=== PATIENT | female | born 1985 | race Caucasian/White ===

== ENCOUNTER 2021-02-17 15:03 | Outpatient (CLI) | payer OTHER, SELFPAY ==
[2021-02-17 15:50] LABS: Basophils % 0.8 %; Eosinophils # 0.2 10^3/uL (0.0-0.8); Eosinophils % 3.6 %; Hematocrit 33.7 % (37.0-47.0); Hemoglobin 10.4 g/dL (11.5-15.3); Lymphocytes % 18.9 %; Mean Corpuscular HGB Conc 30.9 g/dL (30.0-36.0); Mean Corpuscular Hemoglobin 27.1 pg (28.0-34.0); Mean Corpuscular Volume 87.8 fl (81-99); Mean Platelet Volume 9.7 fL (7.4-10.4); Monocytes # 0.5 10^3/uL (0.2-0.9); Monocytes % 9.8 %; Neutrophils # 3.35 10^3/uL (1.8-7.7); Neutrophils % 66.7 %; Nucleated Red Blood Cells % 0 %; Platelet Count 269 10^3/cmm (130-400); Red Blood Count 3.84 10^6/uL (4.1-5.3); Red Cell Distribution Width 13.9 % (12.1-15.1)
[2021-02-17 16:37] LABS: Alanine Aminotransferase 12 U/L (0-33); Albumin Level 4.4 g/dL (3.5-5.2); Alkaline Phosphatase 60 IU/L (35-105); Anion Gap 16.7 (5-19); Aspartate Amino Transferase 15 U/L (0-32); Blood Urea Nitrogen 8 mg/dL (6-20); Calcium 9.3 mg/dL (8.5-10.5); Carbon Dioxide 23 mmol/L (22-29); Chloride 103 mmol/L (98-107); Globulin 2.6 g/dL (1.3-4.6); Glomerular Filtration Rate 138.8 mL/min (90-130); Glucose 89 mg/dL (65-115); Osmolality Calculated 286 mOsm/kg (285-295); Potassium 3.7 mmol/L (3.5-5.1); Sodium 139 mmol/L (136-145); Thyroid Stimulating Hormone 1.98 uIU/mL (0.27-4.20); Total Bilirubin 0.2 mg/dL (0.15-1.2); Vitamin B12 456 pg/mL (232-1245)
[2021-02-17 18:04] LABS: Estmated Average Glucose 123; Hemoglobin A1C 5.9 % (4.0-6.0)
== END 2021-02-17 15:04 | disposition home or self-care (01) ==
PROVIDERS: PCP Electrodiagnostic Medicine; Visit Provider Obstetrics & Gynecology
DX: N92.0 Excessive and frequent menstruation with regular cycle (principal); N95.1 Menopausal and female climacteric states; R63.5 Abnormal weight gain
CPT/HCPCS: 36415; 80053; 82607; 83036; 84443; 85025; 87624

== ENCOUNTER → 2021-02-22 09:05 | Outpatient (BNVA) | payer OTHER, SELFPAY | PROVIDERS: PCP Electrodiagnostic Medicine; Visit Provider Obstetrics & Gynecology | DX: N92.0 Excessive and frequent menstruation with regular cycle (principal) | CPT/HCPCS: 76830 ==

== ENCOUNTER → 2021-03-31 16:37 | Outpatient (BNVA) | payer OTHER, SELFPAY | PROVIDERS: PCP Electrodiagnostic Medicine; Visit Provider Obstetrics & Gynecology | DX: Z20.822 Contact with and (suspected) exposure to COVID-19 (principal); D25.9 Leiomyoma of uterus, unspecified; N92.0 Excessive and frequent menstruation with regular cycle; Z87.42 Personal history of other diseases of the female genital tract | CPT/HCPCS: 87635 ==

== ENCOUNTER 2021-04-05 16:10 | Observation (INO) | payer OTHER, SELFPAY ==
[2021-04-04 16:29] VITALS: BMI 34.6
[2021-04-05] VITALS (15 sets, daily range): BP systolic 131–176; BP diastolic 68–98; PULSE 72–122; RESP 16–18; TEMP 36.1–36.9; O2SAT 91–100
[2021-04-05 09:36] LABS: OR HCG Qualitative Urine Negative (Negative)
[2021-04-05] MEDS: sodium chloride 0.9% 1,000 ML 30 ML IV (09:47)
[2021-04-05] MEDS: acetaminophen 1,000 MG/100 ML PIGGYBACK 400 MG IV (09:48)
[2021-04-05] MEDS: gabapentin 300 mg Capsule PO (09:49)
[2021-04-05] MEDS: ketorolac 30 mg/mL INJ IVP (09:50)
[2021-04-05] MEDS: CELEcoxib 200 mg Capsule 400 MG PO (09:50)
[2021-04-05] MEDS: scopolamine 1.5 Patch 1 PATCH TRANSDERMA (09:50)
[2021-04-05 09:53] LABS: Basophils % 0.9 %; Eosinophils # 0.2 10^3/uL (0.0-0.8); Eosinophils % 4.3 %; Hematocrit 33.4 % (37.0-47.0); Hemoglobin 10.2 g/dL (11.5-15.3); Lymphocytes % 22.2 %; Mean Corpuscular HGB Conc 30.5 g/dL (30.0-36.0); Mean Platelet Volume 9.5 fL (7.4-10.4); Monocytes # 0.4 10^3/uL (0.2-0.9); Monocytes % 8.3 %; Neutrophils # 2.85 10^3/uL (1.8-7.7); Neutrophils % 63.9 %; Nucleated Red Blood Cells % 0 %; Platelet Count 277 10^3/cmm (130-400); Red Blood Count 3.93 10^6/uL (4.1-5.3); Red Cell Distribution Width 14.2 % (12.1-15.1); White Blood Count 4.5 10^3/uL (4.0-10.0)
[2021-04-05] MEDS: phenazopyridine 100 mg Tablet 200 MG PO (09:54)
--- NOTE | 2021-04-05 09:54 | W.PM.OPSUD ---
Surgery/Procedure H&P Update DATE OF PROCEDURE: April 05, 2021 DATE H&P PERFORMED: 03/31/21 H&P UPDATE INFORMATION: I have reviewed H&P completed within last 30 days, I have examined patient prior to procedure and No changes to prior documentation PREOP DIAGNOSIS: bulky or enlarged uterus, abnormal pap, AUB, mixed incontinence PLANNED PROCEDURE: Operation Date: 04/05/21 10:35 Proposed Procedures p Laparoscopic Assist Vaginal Hysterectomy [id number]/n92.0/d25.9/z87.42(Not Applicable) - Carla Johnson MD s Laparoscopic Salpingectomy(Not Applicable) - Carla Johnson MD s Anterior Repair(Not Applicable) - Carla Johnson MD Related Problem List Diagnoses (1) Mixed incontinence: (2) Bulky or enlarged uterus: (3) History of abnormal cervical Pap smear: (4) Menorrhagia:
[2021-04-05 10:15] LABS: Alanine Aminotransferase 22 U/L (0-33); Albumin Level 4.8 g/dL (3.5-5.2); Alkaline Phosphatase 62 IU/L (35-105); Anion Gap 15.7 (5-19); Aspartate Amino Transferase 28 U/L (0-32); Blood Urea Nitrogen 10 mg/dL (6-20); Calcium 9.1 mg/dL (8.5-10.5); Carbon Dioxide 24 mmol/L (22-29); Chloride 104 mmol/L (98-107); Creatinine Clr Calc Pharmacy 173.2526; Globulin 2.9 g/dL (1.3-4.6); Glomerular Filtration Rate 138.1 mL/min (90-130); Glucose 111 mg/dL (65-115); Osmolality Calculated 288 mOsm/kg (285-295); Potassium 4.7 mmol/L (3.5-5.1); Sodium 139 mmol/L (136-145); Total Bilirubin 0.2 mg/dL (0.15-1.2); Total Protein 7.7 g/dL (6.6-8.7)
--- NOTE | 2021-04-05 10:20 | P.ANESASSM_ITS ---
Pre-Anesthetic Assessment Height/Weight: Height 1.65 m Weight 94.347 kg Temp Pulse Resp BP Pulse Ox 97.9 F 74 16 142/68 100 04/05/21 09:23 04/05/21 09:23 04/05/21 09:23 04/05/21 09:23 04/05/21 09:23 Preop Diagnosis: bulky or enlarged uterus, abnormal pap, AUB, mixed incontinence Operation Date: 04/05/21 10:35 Proposed Procedures p Laparoscopic Assist Vaginal Hysterectomy [id number]/n92.0/d25.9/z87.42(Not Applicable) - Carla Johnson MD s Laparoscopic Salpingectomy(Not Applicable) - Carla Johnson MD s Anterior Repair(Not Applicable) - Carla Johnson MD Was Beta You taken within 24 hours: N/A Was Clonidine taken within 24 hours: N/A Last intake: Intake Last Liquid Date 04/04/21 Last Liquid Time 22:00 Last Solid Date 04/04/21 Last Solid Time 22:00 Social No alcohol and No tobacco Exam alert, oriented x 3, clear to auscultation bilaterally and regular rate & rhythm Airway Submandibular: within normal limits Cervical ROM: within normal limits Mallampati: Class II Dentition: full Pulmonary None reported CV/HEM None reported Hx of Raynaud's disease None reported Hepatic None reported GI None reported Musc/skel Hx of sciatic nerve injury delivery of child years ago. Delivery was in [facility] and prolonged. Continues to have periods where her right lower extremity is weak with paresthesia and difficult to get going after a period of rest. Was advised to go to PT after giving but never went. Has not had this issue formally worked up. Denies associated lumbago or radiculopathy from low back. Neuropsych Anxiety and Neuropathy (RLE as above) Anesthetic Plan ASA status: 2 Anesthesia: Anesthesia Evaluation and General Other: We discussed risk and benefits of general anesthesia including PONV, sore throat (sometimes severe), corneal abrasion, positioning and peripheral nerve injuries, life threatening allergic reaction, post operative ICU admission requiring prolonged intubation, stroke, heart attack, , and rare incidences of recall . Patient consents to proceed with general anesthesia. I discussed with patient her possible increased risk for peripheral nerve injury given today's positioning requirements and her pre existing injury to her right sciatic nerve associated with a prolonged delivery in [facility]. I advised the patient to have this medically evaluated by an orthopedist or neurologist. I advised the patient to consider PT. Also I pointed the patient to several therapeutic interventions should could try at home including home piriformis muscle stretching on the floor on a small ball and reviewing and considering a trial the techniques in the original 12 minutes of foundation training found at https://www.youtube.com/watch?v=Ezo-IsqfEVo I advised the patient that in attempting these home interventions she should use common sense and avoid doing any maneuvers that hurt. Risk of > 500 ml blood loss (7ml/kg in children): No Medications/Allergies Home Medications Medication Instructions Recorded Confirmed Last Taken Type sertraline 100 mg tablet 100 mg PO DAILY 02/17/21 04/05/21 04/04/21 History Allergies Allergy/AdvReac Type Severity Reaction Status Date / Time No Known Allergies Allergy Verified 04/04/21 16:28 Current Medications Generic Name Dose Route Start Last Admin Trade Name Freq PRN Reason Stop Dose Admin Sodium Chloride 1,000 mls @ 30 mls/hr 04/05/21 09:15 04/05/21 09:47 Sodium Chloride 0.9% IV 04/06/21 09:14 30 mls/hr .Q24H LETY Administration PFSH Anesthesia Medical History Depression Surgical History No pertinent past surgical history Family History Father Hypertension CAD (coronary artery disease) Mother Cancer lung cancer Denies family history of Diabetes Clotting disorder Hyperlipidemia Chronic kidney disease (CKD) Bleeding disorder Thyroid disease Stroke Social History Marital status: Data Anesthesia : 04/05/21 09:42 04/05/21 09:42 Short CBC 04/05/21 Range/Units 09:42 WBC 4.5 (4.0-10.0) 10^3/uL Hgb 10.2 L (11.5-15.3) g/dL Hct 33.4 L (37.0-47.0) % MCV 85.0 (81-99) fl Plt Count 277 (130-400) 10^3/cmm Neut % (Auto) 63.9 % Neut # (Auto) 2.85 (1.8-7.7) 10^3/uL BMP 04/05/21 09:42 Sodium 139 Potassium 4.7 Chloride 104 Carbon Dioxide 24 BUN 10 Creatinine 0.5 Glucose 111 Calcium 9.1 Liver Function 04/05/21 Range/Units 09:42 Total Bilirubin 0.2 (0.15-1.2) mg/dL AST 28 (0-32) U/L ALT 22 (0-33) U/L Alkaline Phosphatase 62 (35-105) IU/L Albumin 4.8 (3.5-5.2) g/dL Cardiac Studies: No Data to Display
[2021-04-05] MEDS: midazolam 1 mg/mL INJ 2 mL 2 MG IVP (10:24)
[2021-04-05] MEDS: miSOPROStol 200 mcg Tablet 800 MCG VAGINAL (12:56)
--- NOTE | 2021-04-05 13:07 | SUR.OPER ---
1301 Family updated of surgical status
[2021-04-05] MEDS: vasopressin 20 unit/mL INJ INJECTION (14:00)
--- NOTE | 2021-04-05 14:29 | SUR.OPER ---
1429 family updated of surgical status
--- NOTE | 2021-04-05 15:02 | PM.OP ---
Operative Report Date of procedure: April 05, 2021 Pre-op diagnosis: Preop Diagnosis bulky or enlarged uterus, abnormal pap, AUB, mixed incontinence Post-op diagnosis: same Post-op findings: enlarged uterus, normal appearing tubes and ovaries Procedure done: LAVH with bilateral salpingectomy and cystoscopy Specimens removed/disposition: uterus and bilateral fallopian tubes to pathology Surgeon: Carla Johnson Anesthesia: General Estimated blood loss (mL): 100 IV fluids (mL): 1,100 Urine output (mL): 400 Complications: none Findings: enlarged, bulky uterus and normal appearing fallopian tubes and ovaries Procedure: The patient was taken to the operating room where general anesthesia was administered and found to be adequate. She was prepped and draped in the normal sterile fashion in the dorsal lithotomy position in [facility]. A Jackson catheter was placed. A weighted speculum was placed into the vagina and the anterior lip of the cervix was grasped with a single tooth tenaculum. The Zumi uterine manipulator was placed. The weighted speculum was removed. The gloves were changed and attention was turned to the abdomen. A 5 mm infraumbilical incision was made. Using a 5 mm port with the camera, the port was placed into the abdomen. The abdomen was insufflated. Two low, lateral 5 mm ports were placed on the left and right under direct visualization from the camera. The right tube was grasped and elevated. Using the laparoscopic cautery, the mesosalpinx was divided between the ovary and tube. The tube was removed. This was performed the same way on the left. The uteroovarian ligaments as well as the round ligaments were ligated. Attention was then turned to the vaginal portion of the procedure. The weighted speculum was placed into the vagina. The zumi manipulator was removed. The single tooth tenaculum was removed and replaced with the amado's tenaculum. 10 mL of dilute Pitressin was injected at the vesicovaginal junction. A circumferential incision was made at the vesicovaginal junction and the vaginal mucosa reflected cephalad. The posterior peritoneum was entered sharply with the Metzenbaum scissors and the long weighted speculum replaced. Using the Carey clamps the uterosacral ligaments were clamped cut and suture-ligated. The anterior peritoneum was entered sharply with the metzenbaum scissors. Then sequentially the uterine arteries and cardinal ligaments were clamped cut and suture-ligated. A single-tooth tenaculum was used to deliver the uterus. The remaining segement of the utero-ovarian ligaments were clamped cut and suture-ligated bilaterally and the specimen was removed. There was good hemostasis with only mild bleeding from the cuff. The peritoneum was closed with a pursestring using 2-0 Vicryl. The vaginal cuff was closed with 0 Vicryl in a running locked pattern incorporating the uterosacral ligaments into the lateral aspects of the vaginal cuff. The Jackson catheter was removed and the cystoscope advanced into the bladder. The patient was given pyridium and bilateral spill was noted. There were no injuries or deficits noted in the bladder. The cystoscope was removed. Crudee was performed and there was no incontinence. The Jackson was replaced. Vaginal packing was placed for good hemostasis. The patient tolerated the procedure well. Sponge lap and needle counts were correct x3. She was taken to the recovery room in stable condition.
--- NOTE | 2021-04-05 16:03 | ANE.PACU2 ---
Inpatient post-anesthesia follow up: Airway intact: Yes Vital signs: Temperature 97.2 F Pulse Rate 95 Respiratory Rate 18 Blood Pressure 148/98 Pulse Oximetry 98 Oxygen Delivery Me thod Room Air Oxygen Flow Rate 6 Fraction of Inspir ed Oxygen Hydration adequate: Yes Nausea and vomiting: No Pain level: 1 Mental status: Baseline
[2021-04-05] MEDS: HYDROcodone-acetaminophen 5-325 mg Tablet PO (16:52)
[2021-04-05] MEDS: docusate sodium 100 mg Capsule PO (20:54)
[2021-04-05] MEDS: lactated ringers 1,000 ML 125 ML IV (21:54)
[2021-04-05] MEDS: oxyCODONE-APAP 5-325 mg Tablet PO (22:09)
[2021-04-06 00:21] VITALS: BP 104/63; PULSE 81; RESP 12; O2SAT 93
[2021-04-06 04:11] VITALS: BP 116/71; PULSE 70; RESP 18; TEMP 36.6; O2SAT 99
[2021-04-06 05:03] VITALS: RESP 16; O2SAT 97
[2021-04-06] MEDS: oxyCODONE-APAP 5-325 mg Tablet PO ×2 (05:03→11:38)
[2021-04-06 05:41] LABS: Hematocrit 30.6 % (37.0-47.0); Hemoglobin 9.2 g/dL (11.5-15.3); Mean Corpuscular HGB Conc 30.1 g/dL (30.0-36.0); Mean Corpuscular Hemoglobin 26.4 pg (28.0-34.0); Mean Corpuscular Volume 87.7 fl (81-99); Mean Platelet Volume 10.5 fL (7.4-10.4); Platelet Count 276 10^3/cmm (130-400); Red Blood Count 3.49 10^6/uL (4.1-5.3); Red Cell Distribution Width 14.6 % (12.1-15.1); White Blood Count 10.7 10^3/uL (4.0-10.0)
--- NOTE | 2021-04-06 06:08 | PC.NURSE ---
Pt's vaginal packing was removed at 0556 on 04/06/2021. Telephone order was received by this RN from MD Elizabeth prior to removing vaginal packing and ramírez catheter.
[2021-04-06] MEDS: lactated ringers 1,000 ML 125 ML IV (06:45)
[2021-04-06] MEDS: ibuprofen 800 mg tablet PO (07:54)
[2021-04-06] MEDS: docusate sodium 100 mg Capsule PO (09:09)
[2021-04-06] MEDS: sertraline 50 mg Tablet 100 MG PO (09:10)
--- NOTE | 2021-04-06 10:24 | P.DS_ITS ---
Discharge Providers Date of Admission: 04/05/21 16:10 Date of Discharge: April 06, 2021 Attending Provider at Admission: Carla Johnson MD Attending Provider at Discharge: Carla Johnson MD Primary Care Provider: Roger Bernal DO Diagnoses at Discharge Discharge Diagnosis (1) Mixed incontinence: Status: Acute (2) Bulky or enlarged uterus: Status: Acute (3) History of abnormal cervical Pap smear: Status: Acute (4) Menorrhagia: Status: Acute Reason for Visit Reason for Visit: menorrhagia/uterine fibroids/abnormal pap Hospital Course Hospital Course The patient was admitted for surgery. She did well postoperatively and was ready for discharge on POD# Physical Exam Narrative: The patient is doing well this morning. She has had her catheter and packing removed. No concerns Const: COMMON NORMALS: no acute distress, patient oriented x3, no limitations, healthy appearing, alert and well nourished GENERAL APPEARANCE: cooperative, comfortable, well kempt and well developed ORIENTATION/CONSCIOUSNESS: Yes awake, Yes oriented to person, Yes oriented to place and Yes oriented to time Resp: COMMON NORMALS: normal respiratory effort EFFORT & INSPECTION: Yes able to speak in complete sentences GI: COMMON NORMALS: Soft to palpation and non-tender PALPATION: Yes Soft to palpation Extremity: COMMON NORMALS: no calf tenderness Neuro: COMMON NORMALS: patient oriented x3 SENSORIUM/ORIENTATION: Yes alert, Yes oriented to person, Yes oriented to place and Yes oriented to time Psych: APPEARANCE: Yes well kempt Urinary Catheter Management: Jackson Latex: Cath Placed During This Visit: yes, but has since been removed by the nurse Reason for Continuing Indwelling Catheter: Decision to DC Catheter Urinary Catheter Date of Insertion: 04/05/21 Urinary Catheter Time of Insertion: 12:56 Date Urinary Catheter Removed: 04/06/21 Time Urinary Catheter Discontinued: 05:59 Discharge Data Studies Completed and Pending Pending at discharge Category Date Time Status Retype for Patiets ABO/Rh Routine Lab 04/05/21 10:56 Ordered Urine Culture Routine Lab 04/05/21 12:56 Received Pathology: Surgical [PTH] Routine Pth 04/05/21 14:59 Received Laboratory Results WBC 10.7 10^3/uL (4.0-10.0) H 04/06/21 05:13 RBC 3.49 10^6/uL (4.1-5.3) L 04/06/21 05:13 Hgb 9.2 g/dL (11.5-15.3) L 04/06/21 05:13 Hct 30.6 % (37.0-47.0) L 04/06/21 05:13 MCV 87.7 fl (81-99) 04/06/21 05:13 MCH 26.4 pg (28.0-34.0) L 04/06/21 05:13 MCHC 30.1 g/dL (30.0-36.0) 04/06/21 05:13 RDW 14.6 % (12.1-15.1) 04/06/21 05:13 Plt Count 276 10^3/cmm (130-400) 04/06/21 05:13 MPV 10.5 fL (7.4-10.4) H 04/06/21 05:13 Neut % (Auto) 63.9 % 04/05/21 09:42 Lymph % (Auto) 22.2 % 04/05/21 09:42 [place] % (Auto) 8.3 % 04/05/21 09:42 Eos % (Auto) 4.3 % 04/05/21 09:42 Baso % (Auto) 0.9 % 04/05/21 09:42 Neut # (Auto) 2.85 10^3/uL (1.8-7.7) 04/05/21 09:42 Lymph # (Auto) 1.0 10^3/uL (0.8-4.8) 04/05/21 09:42 [place] # (Auto) 0.4 10^3/uL (0.2-0.9) 04/05/21 09:42 Eos # (Auto) 0.2 10^3/uL (0.0-0.8) 04/05/21 09:42 Baso # (Auto) 0.0 10^3/uL (0.0-0.1) 04/05/21 09:42 Nucleated RBC % (auto) 0 % 04/05/21 09:42 Nucleated RBCs # 0.0 /100WBC 04/05/21 09:42 Sodium 139 mmol/L (136-145) 04/05/21 09:42 Potassium 4.7 mmol/L (3.5-5.1) 04/05/21 09:42 Chloride 104 mmol/L (98-107) 04/05/21 09:42 Carbon Dioxide 24 mmol/L (22-29) 04/05/21 09:42 Anion Gap 15.7 (5-19) 04/05/21 09:42 BUN 10 mg/dL (6-20) 04/05/21 09:42 Creatinine 0.5 mg/dL (0.5-0.9) 04/05/21 09:42 GFR Calculation 138.1 mL/min (90-130) H 04/05/21 09:42 Glucose 111 mg/dL (65-115) 04/05/21 09:42 Calculated Osmolality 288 mOsm/kg (285-295) 04/05/21 09:42 Calcium 9.1 mg/dL (8.5-10.5) 04/05/21 09:42 Total Bilirubin 0.2 mg/dL (0.15-1.2) 04/05/21 09:42 AST 28 U/L (0-32) 04/05/21 09:42 ALT 22 U/L (0-33) 04/05/21 09:42 Alkaline Phosphatase 62 IU/L (35-105) 04/05/21 09:42 Total Protein 7.7 g/dL (6.6-8.7) 04/05/21 09:42 Albumin 4.8 g/dL (3.5-5.2) 04/05/21 09:42 Globulin 2.9 g/dL (1.3-4.6) 04/05/21 09:42 Urine HCG, Qual Negative (Negative) 04/05/21 09:35 Blood Type O Positive 04/05/21 09:42 Rho(D) Type Positive 04/05/21 09:42 Antibody Screen Negative 04/05/21 09:42 Vitals Last Vital Signs Temp 97.8 F 04/06/21 04:11 Pulse 70 04/06/21 04:11 Resp 16 04/06/21 05:03 BP 116/71 04/06/21 04:11 Pulse Ox 97 04/06/21 05:03 Discharge Plan Discharge Patient Disposition: Home Condition: Stable Prescriptions: New ibuprofen 800 mg Tablet 800 mg PO Q8H Qty: 40 0RF oxycodone-acetaminophen 5-325 mg Tablet 1 tab PO Q4H PRN (Reason: Moderate To Severe Pain) Qty: 30 0RF docusate sodium 100 mg Capsule 100 mg PO BID Qty: 60 0RF Continued sertraline 100 mg tablet 100 mg PO DAILY 0RF Discharge Orders: Discharge Order (Routine); Ordered 04/06/21 Ordered By: Carla Johnson Referrals: Carla Johnson MD [Physician] - 04/11/21 1:30 pm (Your 1 week incision check is scheduled for 04/11/21 @1:30. Your 6 week post-op appointment is scheduled for 05/19/21 @2:30. ) Patient Instructions: Laparoscopic Hysterectomy (DC), Cystoscopy (DC), OB Discharge Report, OB Food/Drug Interaction Guide, Opioid Safety Discharge Attestations Time Spent in Discharge Care*: less than 30 min Quality Metrics Clinical Quality Measures [ No reported AMI, CVA or VTE this stay] Coding Level of Care Code Acute Chg FW DC note Diagnoses Mixed incontinence N39.46 Bulky or enlarged uterus N85.2 History of abnormal cervical Pap smear Z87.42 Menorrhagia N92.0
[2021-04-06 11:35] VITALS: BP 114/74; PULSE 70; RESP 16; TEMP 36.9
[2021-04-06 11:38] VITALS: RESP 16
== END 2021-04-06 11:52 | disposition home or self-care (01) ==
LOC: OBGYN 16:10
PROVIDERS: Anesthesiology; Admitting Provider Obstetrics & Gynecology; PCP Electrodiagnostic Medicine; Visit Provider Obstetrics & Gynecology
PROC: 0UT9FZZ Resection of Uterus, Via Natural or Artificial Opening With Percutaneous Endoscopic Assistance (ICD-10-PCS; CPT 58552; principal; 2021-04-05 10:35)
PROC: (CPT 58661; 2021-04-05 10:35)
PROC: 0TJB8ZZ Inspection of Bladder, Via Natural or Artificial Opening Endoscopic (ICD-10-PCS; CPT 52000; 2021-04-05 10:35)
DX: N85.2 Hypertrophy of uterus (principal); N39.46 Mixed incontinence; Z87.42 Personal history of other diseases of the female genital tract; N92.0 Excessive and frequent menstruation with regular cycle; Z82.49 Family history of ischemic heart disease and other diseases of the circulatory system
CPT/HCPCS: 58552; 36415; 80053; 81025; 84703; 85025; 85027; 86850; 86900; 87086; 88307; G0378; J0690; J1100; J1170; J1200; J1885; J2250; J2405; J2704; J3010; J3490; J7030

== ENCOUNTER → 2021-12-23 10:23 | Outpatient (BNVA) | payer OTHER, SELFPAY | PROVIDERS: PCP Electrodiagnostic Medicine; Visit Provider Obstetrics & Gynecology | DX: R30.0 Dysuria (principal) | CPT/HCPCS: 81003; 87086 ==

== ENCOUNTER → 2022-03-07 17:02 | Outpatient (BNVA) | payer OTHER, SELFPAY | PROVIDERS: PCP Electrodiagnostic Medicine; Visit Provider Obstetrics & Gynecology | DX: E66.9 Obesity, unspecified (principal); R49.9 Unspecified voice and resonance disorder | CPT/HCPCS: 84403 ==

== ENCOUNTER → 2025-01-12 16:14 | Outpatient (BNVA) | payer BC, SELFPAY | PROVIDERS: PCP Electrodiagnostic Medicine; Visit Provider Obstetrics & Gynecology | DX: Z01.89 Encounter for other specified special examinations (principal); Z79.890 Hormone replacement therapy | CPT/HCPCS: 80048; 80061; 82670; 84403; 84443; 85025 ==

== ENCOUNTER → 2025-01-26 16:50 | Outpatient (BNVA) | payer BC, SELFPAY | PROVIDERS: PCP Electrodiagnostic Medicine; Visit Provider Obstetrics & Gynecology | DX: Z01.419 Encounter for gynecological examination (general) (routine) without abnormal findings (principal) | CPT/HCPCS: 87624 ==